=== PATIENT | male | born 1980 | race Two or more races ===

== ENCOUNTER 2021-06-23 11:45 | Emergency (ER) | payer SELFPAY ==
[~2021-06-23] VITALS: Ht 175.3 cm; Wt 124.7 kg
[2021-06-23 12:50] VITALS: BP 145/91
[2021-06-23] MEDS ORDERED: methylPREDNISolone SOD SUCC 125 MG/2 ML VL IM ONE (13:15)
[2021-06-23] MEDS ORDERED: KETOROLAC TROMETH 60MG/2ML VIAL IM ONE (13:15)
== END 2021-06-23 13:36 | disposition home or self-care (01) ==
LOC: ER 11:45
DX: M10.021 Idiopathic gout, right elbow (principal); M70.21 Olecranon bursitis, right elbow
CPT/HCPCS: 96372; 99284; J1885; J2930